=== PATIENT | female | born 1940 | race Caucasian/White ===

== ENCOUNTER 2018-07-22 14:44 | Emergency (ER) | payer OTHER, MEDICARE ==
[~2018-07-22] VITALS: Ht 149.9 cm; Wt 45.4 kg
[2018-07-22 15:58] LABS: ABSOLUTE NEUTROPHILS 4.5 thou/uL (1.4-8.2); BASOPHILS 1.3 % (0.0-2.0); EOSINOPHILS 1.4 % (0.0-3.0); HEMOGLOBIN 10.5 gm/dL (12.0-15.0); LYMPHOCYTES 26.4 % (24.0-44.0); MCH 32.3 pg (26.0-34.0); MCHC 33.8 g/dL (28.0-37.0); MCV 95.5 fL (80.0-100.0); MONOCYTES 11.9 % (1.0-8.0); PLATELET COUNT 159 thou/uL (150-400); RBC 3.24 mil/uL (4.20-5.00); RDW 17.2 % (10.5-14.5); WBC 7.7 thou/uL (4.0-11.0)
[2018-07-22 16:07] LABS: CREATININE 3.8 mg/dL (0.6-1.0); POTASSIUM 3.4 mmol/L (3.5-5.1)
[2018-07-22 16:13] LABS: ALBUMIN 2.7 g/dL (3.4-5.0); APTT 31.7 Seconds (24.5-32.8); PROTIME 10.5 Seconds (9.3-11.4); TOTAL BILIRUBIN 0.6 mg/dL (<0.1-1.0); TOTAL PROTEIN 10.6 g/dL (6.4-8.2)
[2018-07-22] MEDS ORDERED: CLONIDINE0.1 PO (17:18)
[2018-07-22 18:30] VITALS: BP 198/73
== END 2018-07-22 18:20 | disposition home or self-care (01) ==
LOC: ER 14:44
PROVIDERS: Emergency Medicine
DX: I77.1 Stricture of artery (principal); R41.0 Disorientation, unspecified; I12.0 Hypertensive chronic kidney disease with stage 5 chronic kidney disease or end stage renal disease; N18.6 End stage renal disease; Z99.2 Dependence on renal dialysis

== ENCOUNTER 2018-11-02 06:18 | Inpatient (IN) | payer OTHER, MEDICARE ==
[~2018-11-02] VITALS: Ht 157.5 cm; Wt 54.4 kg
--- NOTE | ~2018-11-02 | 2DMMODE ---
[facility] [employer] [place] [address] 2 D/M-MODE ECHOCARDIOGRAM Name: BAHMAN MARIE Room #: 429-P [facility] IN .R.#: [id number] Admission: 11/02/18 Attend Phys: Liberty Stack Discharge: Date of : 36 Date of Service: 11/03/18 0950 Report #: [id number] THIS REPORT FOR: //name// APPROVED REPORT Study performed: 11/03/2018 08:26:51 EXAM: Comprehensive 2D, Doppler, and color-flow Echocardiogram Patient Location: Bedside Room #: 426 Status: routine BSA: 1.54 HR: 69 bpm BP: 121/50 mmHg Rhythm: NSR Other Information Study Quality: Good Indications Systolic murmur. Hx: ESRD 2D Dimensions RVDd: 34.52 mm IVSd: 9.65 (7-11mm) LVOT Diam: 17.76 (18-24mm) LVDd: 42.01 mm PWd: 7.43 (7-11mm) Ascending Ao: 26.79 (22-36mm) LVDs: 22.36 (25-40mm) Aortic Root: 28.09 mm Volumes Left Atrial Volume (Systole) Single Plane 4CH: 41.96 mL Single Plane 2CH: 32.83 mL LA ESV Index: 27.00 mL/m2 Aortic Valve AoV Peak Everett.: 2.83 m/s AO Peak Gr.: 32.12 mmHg LVOT Max P.03 mmHg AO Mean Gr.: 16.81 mmHg AO V2 Mean: 1.96 m/s LVOT Max V: 1.66 m/s AO V2 VTI: 68.67 cm FRITZ Vmax: 1.45 cm2 Mitral Valve E/A Ratio: 1.1 [facility] [employer] [place] [address] 2 D/M-MODE ECHOCARDIOGRAM Name: BAHMAN MARIE Room #: 429-P [facility]..#: [id number] Admission: 11/02/18 Attend Phys: Liberty Stack Discharge: Date of : 36 Date of Service: 11/03/18 0950 Report #: [id number] MV Decel. Time: 214.46 ms MV E Max Everett.: 1.53 m/s MV A Everett.: 1.38 m/s MV PHT: 62.19 ms IVRT: 59.98 ms Pulmonary Valve PV Peak Everett.: 0.93 m/s PV Peak Gr.: 3.44 mmHg Pulmonary Vein P Vein S: 0.85 m/s P Vein D: 0.41 m/s P Vein S/D Ratio: 2.07 Tricuspid Valve TR Peak Everett.: 2.99 m/s RAP Estimate: 5.00 mmHg TR Peak Gr.: 35.86 mmHg PA Pressure: 41.00 mmHg Left Ventricle The left ventricle is normal size. There is normal LV segmental wall motion. Mild basal septal hypertrophy is present. Left ventricular systolic function is normal. LVEF is 65%. This study is not technically sufficient to allow evaluation of the LV diastolic function. Right Ventricle The right ventricle is normal size. The right ventricular systolic function is normal. Atria The left atrium size is normal. The right atrium size is normal. Aortic Valve Aortic valve is moderately calcified, mildly stenotic. No aortic regurgitation is present. There is mild valvular aortic stenosis. Calculated aortic valve area is 1.5 cm2 with maximum pressure gradient of 32 mmHg and mean pressure gradient of 17 mmHg. Mitral Valve Moderate mitral annular calcification. Mild mitral regurgitation. Tricuspid Valve The tricuspid valve is normal in structure. Mild tricuspid [address] [address] 2 D/M-MODE ECHOCARDIOGRAM Name: FRANKBAHMAN Room #: 429-P [facility] IN ..#: [id number] Admission: 11/02/18 Attend Phys: Liberty Stack Discharge: Date of : 36 Date of Service: 11/03/18 0950 Report #: [id number] regurgitation. Estimated PAP is 40-45mmHg. Pulmonic Valve The pulmonary valve is normal in structure. Trace pulmonic regurgitation. Great Vessels The aortic root is normal in size. The ascending aorta is normal in size. IVC is normal in size and collapses >50% with inspiration. Pericardium There is no pericardial effusion. <Conclusion> Left ventricular systolic function is normal. There is normal LV segmental wall motion. LVEF 65%. Aortic valve is moderately calcified, mildly stenotic. No insufficiency Calculated aortic valve area is 1.5 cm2 with maximum pressure gradient of 32 mmHg and mean pressure gradient of 17 mmHg. Moderate mitral annular calcification. Mild mitral regurgitation. Mild tricuspid regurgitation. Estimated pulmonary artery pressure of 40-45mmHg. There is no pericardial effusion. <ELECTRONICALLY SIGNED> By: Paddy Castro MD, FACC 11/03/1850 9 9 Paddy Castro MD, FACC /INF
--- NOTE | ~2018-11-02 | HC ---
[facility] [address] [place] [address] CONSULTATION Name: FRANKBAHMAN E Room #: 429-P [facility] IN M.R.#: [id number] Admission: 11/02/18 Attend Phys: Liberty Wylie Discharge: Date of : 36 Report #: [id number] THIS REPORT FOR: //name// CC: Janet Wylie DATE OF SERVICE: 11/03/2018 REASON FOR CONSULTATION: End-stage renal disease. HISTORY OF PRESENT ILLNESS: This 78-year-old patient well known to us, has been a chronic dialysis patient in our clinic for many years. She has had multiple complications and chronic progression of same with end-stage renal disease over the years. She has had chronic malnutrition, peripheral arterial disease, she has had multiple falls, fractures and at least a right hip replacement if not bilateral hip replacements. She recently fell and broke her right foot, was at [facility], eventually placed in an extended care facility. She had progressively worsening anemia, had a blood transfusion, got some fever, came to the hospital and was admitted here. PAST MEDICAL HISTORY: The patient is an extremely poor historian giving virtually no useful history. Old records are scarce and I will review those in detail. The patient has end-stage renal disease complicated by anemia, hyperparathyroidism. She has had hypertension, the numerous falls. She has had rather severe peripheral arterial disease including a previous abdominal aortic aneurysm. She has had bypass surgeries on her lower extremities, endarterectomies on attempts to improve peripheral arterial flow. She has poor flow to her feet, but currently has no open sores or nonhealing ulcers. She has had progressive cognitive decline, severe weakness and malnutrition over the course of time. FAMILY HISTORY: Noncontributory. SOCIAL HISTORY: Has been in extended care facility. No longer able to live at home. REVIEW OF SYSTEMS: GENERAL: The patient again a poor historian, extremely weak and has developed progressive cognitive impairment. EYES: Her vision seems to be okay. ENT: Hearing okay, swallows okay at times. At times, she has had trouble with her swallowing. ENDOCRINE: Negative for diabetes. RESPIRATORY: Denies shortness of breath or pleuritic pain. CARDIAC: Denies chest pain, angina or palpitations. GASTROINTESTINAL: Has had a poor appetite, but no diarrhea or bloody stools. [address] [address] CONSULTATION Name: BAHMAN MARIE Dena Room #: 429-P [facility] IN M.R.#: [id number] Admission: 11/02/18 Attend Phys: Liberty Wylie Discharge: Date of : 36 Report #: [id number] GENITOURINARY: Making very little if any urine. NEUROLOGIC: Extreme weakness and confusion, which is chronic. MUSCULOSKELETAL: Extreme weakness. Lots of pain, particularly in her right foot where she has had a recently diagnosed fracture. PHYSICAL EXAMINATION: GENERAL: Extremely chronically ill-appearing, cachectic elderly patient. SKIN: Otherwise, unremarkable. SKELETAL: Really not moving her legs very much, particularly pain in the right leg. HEENT: Extraocular movements are full. Vision is intact. Mucous membranes are dry. NECK: Veins are flat. CHEST: Clear to auscultation. HEART: Regular but distant. ABDOMEN: Soft and nontender. EXTREMITIES: Show what appears to be a tissue bruise on the right heel. NEUROLOGIC: Severe weakness and poor cognition. LABORATORY DATA: Hemoglobin is 6.5, platelets 106. Sodium 134, potassium 5.5, chloride 101, bicarbonate 27, BUN 44, creatinine 5.1. Phosphorus is 2.5, calcium 8.5, albumin only 1.6. ASSESSMENT AND PLAN: 1. End-stage renal disease in need of dialysis. She is hyperkalemic. Volume status seems to be okay. 2. Status post right foot fracture. 3. Severe peripheral arterial disease with compromised circulation of both lower extremities. 4. Status post multiple falls with total right hip replacement. 5. History of abdominal aortic aneurysm. 6. History of hypertension. 7. Progressive chronic impairment with dementia. 8. Severe malnutrition with poor p.o. intake times years. By: [id number] Russell Medina MD /nt
[~2018-11-02 06:18] MED LIST: CLONIDINE0.1 PO
[2018-11-02 10:55] VITALS: BP 105/51
[2018-11-02 11:38] VITALS: BP 105/50; BP 145/45; BP 185/45; BP 196/69
[2018-11-02 15:30] VITALS: BP 231/81
[2018-11-02 16:02] LABS: HEMOGLOBIN 6.9 gm/dL (12.0-15.0); MCHC 33.5 g/dL (28.0-37.0)
[2018-11-02 16:03] LABS: HEMATOCRIT 20.6 % (37.0-47.0); MCH 31.3 pg (26.0-34.0); MCV 93.6 fL (80.0-100.0); PLATELET COUNT 135 thou/uL (150-400); RBC 2.21 mil/uL (4.20-5.00); RDW 18.7 % (10.5-14.5); WBC 22.2 thou/uL (4.0-11.0)
[2018-11-02 16:11] LABS: CALCIUM 8.9 mg/dL (8.5-10.1); CREATININE 4.5 mg/dL (0.6-1.0)
[2018-11-02 16:16] LABS: ALBUMIN 1.8 g/dL (3.4-5.0); TOTAL PROTEIN 8.6 g/dL (6.4-8.2)
[2018-11-02] MEDS ORDERED: ACIDOPHILUS1 EAC4 PO (16:31)
[2018-11-02] MEDS ORDERED: NORVASC10 MG PO (16:32)
[2018-11-02] MEDS ORDERED: ALLOPURINOL 10100 M1 PO (16:32)
[2018-11-02] MEDS ORDERED: AMOXICILLIN 50500 MG PO (16:33)
[2018-11-02] MEDS ORDERED: BAYER CHEWABLE81 MG PO (16:34)
[2018-11-02] MEDS ORDERED: ATIVAN0.5 M1 PO (16:36)
[2018-11-02] MEDS ORDERED: COLACE100 MG PO (16:37)
[2018-11-02] MEDS ORDERED: PEPCID20 MG PO (16:38)
[2018-11-02] MEDS ORDERED: HEPARIN 5 U1 UNIT/ML SUBQ (16:40)
[2018-11-02] MEDS ORDERED: LOPERAMIDE 2 MG2 M1 PO (16:41)
[2018-11-02] MEDS ORDERED: LOPRESSOR25 PO (16:42)
[2018-11-02 16:43] LABS: ABSOLUTE NEUTROPHILS 20.4 thou/uL (1.4-8.2); ANISOCYTOSIS 1+; HYPOCHROMASIA 2+; PLATELET ESTIMATE NORMAL
[2018-11-02] MEDS ORDERED: MIRALAX17 GM PO (16:43)
[2018-11-02] MEDS ORDERED: REMERON15 MG PO (16:44)
[2018-11-02] MEDS ORDERED: NEPHPLEX RX TA1 EACH PO (16:45)
[2018-11-02] MEDS ORDERED: RENAGEL800 MG PO (16:46)
[2018-11-02] MEDS ORDERED: ROCALTROL0.5 MCG PO (16:47)
[2018-11-02] MEDS ORDERED: TRAMADOL 50 MG50 MG PO (16:48)
[2018-11-02] MEDS ORDERED: TYLENOL325 MG PO (16:49)
[2018-11-02 18:49] VITALS: BP 146/52
[2018-11-03 04:49] VITALS: BP 127/44
[2018-11-03 06:09] LABS: ALBUMIN 1.6 g/dL (3.4-5.0); CALCIUM 8.5 mg/dL (8.5-10.1); CREATININE 5.1 mg/dL (0.6-1.0); PHOSPHORUS 2.5 mg/dL (2.5-4.9)
[2018-11-03 06:11] LABS: POTASSIUM 5.5 mmol/L (3.5-5.1)
[2018-11-03 06:55] LABS: HEMOGLOBIN 6.5 gm/dL (12.0-15.0)
[2018-11-03 06:56] LABS: HEMATOCRIT 20.1 % (37.0-47.0); MCH 30.4 pg (26.0-34.0); MCHC 32.5 g/dL (28.0-37.0); MCV 93.5 fL (80.0-100.0); RBC 2.15 mil/uL (4.20-5.00)
[2018-11-03 07:49] VITALS: BP 121/50
[2018-11-03 09:12] VITALS: BP 114/38
[2018-11-03 14:01] VITALS: BP 116/53; BP 126/55
[2018-11-03 14:03] VITALS: BP 116/53
[2018-11-03 20:18] VITALS: BP 155/43
[2018-11-04 04:39] VITALS: BP 155/54
[2018-11-04 06:52] LABS: FOLIC ACID 16.7 ng/mL (8.6-58.9)
[2018-11-04 08:06] VITALS: BP 158/70
[2018-11-04 09:43] VITALS: BP 158/70
[2018-11-04] MEDS ORDERED: CEFUROXIME250 MG PO (10:19)
[2018-11-04 11:20] LABS: CALCIUM 9.6 mg/dL (8.5-10.1)
[2018-11-04 11:21] LABS: CREATININE 3.3 mg/dL (0.6-1.0)
[2018-11-04 23:07] LABS: GLYCOHEMOGLOBIN (HGB A1C) 4.8 % (4.8-5.6)
== END 2018-11-04 17:39 | DRG 871 ==
LOC: OPONC 06:18 → ER 06:18 → OPONC 14:29 → EDSTATUS 16:32 → 4E 17:31 → EROBS 17:31 → 4E 19:46
PROVIDERS: Emergency Medicine; Hospitalist; Nurse Practitioner Family
PROC: 30253N1 (ICD-10-PCS; principal; 2018-11-02)
PROC: 5A1D70Z Performance of Urinary Filtration, Intermittent, Less than 6 Hours Per Day (ICD-10-PCS; 2018-11-03)
DX: A41.9 Sepsis, unspecified organism (principal); N18.6 End stage renal disease; E43 Unspecified severe protein-calorie malnutrition; J18.0 Bronchopneumonia, unspecified organism; E87.1 Hypo-osmolality and hyponatremia; T80.92XA Unspecified transfusion reaction, initial encounter; F32.9 Major depressive disorder, single episode, unspecified; K59.00 Constipation, unspecified; M10.9 Gout, unspecified; D63.8 Anemia in other chronic diseases classified elsewhere; K21.9 Gastro-esophageal reflux disease without esophagitis; E78.5 Hyperlipidemia, unspecified; F03.90 Unspecified dementia, unspecified severity, without behavioral disturbance, psychotic disturbance, mood disturbance, and anxiety; I73.9 Peripheral vascular disease, unspecified; E87.5 Hyperkalemia; Z68.21 Body mass index [BMI] 21.0-21.9, adult; Z87.891 Personal history of nicotine dependence
CPT/HCPCS: 10084; 32100; 91030